=== PATIENT | female | born 1985 | race Caucasian/White ===

== ENCOUNTER 2017-05-15 19:15 | Emergency (ER) | payer SELFPAY ==
[~2017-05-15] VITALS: Ht 157.5 cm; Wt 56.8 kg
[2017-05-15 19:25] VITALS: BP 107/82; PULSE 100; RESP 18; TEMP 98.2; O2SAT 100
--- NOTE | 2017-05-15 19:30 | PD ---
HPI Chief Complaint: drug overdose Time Seen by Provider: 19:21 Travel History International Travel<30 days: No Contact w/Intl Traveler<30days: No Traveled to known affect area: No History of Present Illness HPI 31-year-old female brought in by EMS after being found unresponsive at a [address] and becoming responsive after receiving 0.4 mg of Narcan. Patient admits to injecting heroin this evening. She denies intentional overdose. She is very tearful. No physical complaints. She denies using any other drugs. She denies suicidal or homicidal ideation. [facility] Social History Tobacco Use: Yes Allergies-Medications (Allergen,Severity, Reaction): Coded Allergies: No Known Allergies (Unverified , 05/15/17) Review of Systems Except as stated in HPI: all other systems reviewed are Neg Physical Exam Narrative GENERAL: Well-developed, well-nourished, awake, alert, tearful, no apparent distress. SKIN: Focused skin assessment warm/dry. HEAD: Atraumatic. Normocephalic. EYES: Pupils equal and round. No scleral icterus. No injection or drainage. ENT: Poor dentition. Mucous members pink and moist. NECK: Trachea midline. No JVD. CARDIOVASCULAR: Regular rate and rhythm. RESPIRATORY: No accessory muscle use. Clear to auscultation. Breath sounds equal bilaterally. GASTROINTESTINAL: Abdomen soft, non-tender, nondistended. MUSCULOSKELETAL: No obvious deformities. No clubbing. No cyanosis. No edema. NEUROLOGICAL: Awake and alert. No obvious cranial nerve deficits. Motor grossly within normal limits. Normal speech. PSYCHIATRIC: Tearful. Flat affect. Data Data Last Documented VS Vital Signs Date Time Temp Pulse Resp B/P (MAP) Pulse Ox O2 Delivery O2 Flow Rate FiO2 05/15/17 22:03 88 18 110/76 (87) 98 05/15/17 19:25 98.2 Orders Orders Ed Discharge Order (05/15/17 21:40) MDM Medical Decision Making Medical Screen Exam Complete: Yes Emergency Medical Condition: Yes Differential Diagnosis Opioid overdose Narrative Course This is a 31-year-old female who is brought in by EMS after being found unresponsive and becoming responsive after receiving Narcan. This was an unintentional opiate overdose. She will be observed in the emergency department. Diagnosis Primary Impression: Opioid overdose Qualified Codes: T40.2X1A - Poisoning by other opioids, accidental ( unintentional), initial encounter Referrals: [facility] Additional Instructions: Follow-up with Wilfred king tomorrow for help with opioid addiction. Return to the emergency department for worsening symptoms or any other concerns. Disposition: 01 DISCHARGE HOME Condition: sIreal Vernon MD May 15, 2017 19:30
[2017-05-15 22:03] VITALS: BP 110/76
== END 2017-05-15 22:03 | disposition home or self-care (01) ==
LOC: NEPE 19:15
DX: T40.1X1A Poisoning by heroin, accidental (unintentional), initial encounter (principal)
CPT/HCPCS: 99283